=== PATIENT | female | born 1960 | race Caucasian/White ===

== ENCOUNTER 2021-08-12 09:06 | Day surgery (SDC) | payer OTHER ==
[~2021-08-12] VITALS: Ht 167.6 cm; Wt 85.7 kg
[~2021-08-12 09:06] MED LIST: CALC1CAP8 PO; CELE200C PO; CHOL10003 PO; ERGO500017 PO; HYDR200T72 PO; MAGN400T9 PO; OMEP40CA8 PO; PROPOFOL 0 ML ONE; TURM500C4 PO; VITA-74 PO; ZINC50CA PO
[2021-08-12] MEDS ORDERED: LACTATED RINGERS 1,000 ML IV SCH (09:30)
[2021-08-12] MEDS ORDERED: CHLORHEXIDINE 15 ML UDC ONE (09:30)
[2021-08-12] MEDS ORDERED: CHLORHEXIDINE 15 ML UDC PO ONE (09:30)
[2021-08-12 09:32] VITALS: BP 135/85
[2021-08-12] MEDS ORDERED: HYDROcodone/APAP 7.5-325MG/15ML UDC PO PRN (10:30)
[2021-08-12] MEDS ORDERED: METHOCARBAMOL 1,000 MG in DEXTROSE 5% 100 ML IV PRN (10:30)
[2021-08-12] MEDS ORDERED: FENTANYL PF 100 MCG/2ML IV PRN (10:30)
[2021-08-12] MEDS ORDERED: ONDANSETRON 2MG/ML, 2ML IVPush PRN (10:30)
[2021-08-12] MEDS ORDERED: MEPERIDINE/PF 25MG/0.5ML IVPush PRN (10:30)
[2021-08-12] MEDS ORDERED: PROMETHAZINE 25 MG/ML, 1ML IVPush PRN (10:30)
[2021-08-12] MEDS ORDERED: HYDROmorphone 1 MG/ML, 1ML INJ IVPush PRN (10:30)
[2021-08-12] MEDS ORDERED: LORazepam 2 MG/ML, 1ML IVPush PRN (10:30)
[2021-08-12] MEDS ORDERED: DIPHENHYDRAMINE 50 MG/ML, 1ML IVPush PRN (10:30)
[2021-08-12] MEDS ORDERED: PROPOFOL 50 ML ONE (10:58)
[2021-08-12] MEDS ORDERED: OMNIPAQUE 350 MG/ML, 50 ML BOTTLE ONE (11:32)
[2021-08-12] MEDS ORDERED: ONDANSETRON 2MG/ML, 2ML ONE (12:09)
[2021-08-12] MEDS ORDERED: FENTANYL PF 100 MCG/2ML ONE (12:49)
[2021-08-12] MEDS ORDERED: DIPHENHYDRAMINE 50 MG/ML, 1ML ONE (12:56)
[2021-08-12] MEDS ORDERED: EPINEPHRINE SYRINGE 0.1 MG/ML, 10ML ONE (14:43)
== END 2021-08-12 15:30 | disposition home or self-care (01) ==
LOC: OUT 09:06
PROVIDERS: ATTEND Internal Medicine Geriatric Medicine
DX: K80.50 Calculus of bile duct without cholangitis or cholecystitis without obstruction (principal); K31.89 Other diseases of stomach and duodenum; K21.9 Gastro-esophageal reflux disease without esophagitis; E78.5 Hyperlipidemia, unspecified; M06.9 Rheumatoid arthritis, unspecified; F41.9 Anxiety disorder, unspecified; Z20.822 Contact with and (suspected) exposure to COVID-19; Z79.899 Other long term (current) drug therapy; Z90.49 Acquired absence of other specified parts of digestive tract; Z98.890 Other specified postprocedural states; Z82.49 Family history of ischemic heart disease and other diseases of the circulatory system
CPT/HCPCS: 43259; 43262; 43264; 74328; 93005; C1769; J2405; J2704; J3010; J7120; Q9967; U0003; U0005